=== PATIENT | female | born 1990 | race Caucasian/White ===

== ENCOUNTER 2017-06-13 19:56 | Emergency (ER) | payer SELFPAY, OTHER ==
[2017-06-15 07:59] LABS: NEGATIVE OBC STREP NEG; POSITIVE OBC STREP POS
== END 2017-06-13 21:48 | disposition home or self-care (01) ==
LOC: ER 19:56
DX: J02.9 Acute pharyngitis, unspecified (principal); H66.91 Otitis media, unspecified, right ear; Z90.49 Acquired absence of other specified parts of digestive tract
CPT/HCPCS: 87070; 87880; 99283

== ENCOUNTER 2019-05-05 13:40 | Emergency (ER) | payer SELFPAY ==
[~2019-05-05] VITALS: Ht 167.6 cm; Wt 88.5 kg
[~2019-05-05 13:40] MED LIST: CEPH-264 PO
[2019-05-05 13:56] VITALS: BP 138/74
--- NOTE | 2019-05-05 14:46 | PHYS DOC ---
Past Medical History Past Medical History: No Pertinent History (MAGDALENE TIJERINA APRN) Past Surgical History: Cholecystectomy (MAGDALENE TIJERINA APRN) Alcohol Use: None Drug Use: None (MAGDALENE TIJERINA APRN) Attending Signature I have participated in the care of this patient and I have reviewed and agree with all pertinent clinical information above including history, exam, and recommendations. (ELLEN PARRA MD) Adult General Chief Complaint Chief Complaint: DENTAL PROBLEM HPI HPI Patient is a 28 year old female who presents to the emergency department with complaints of lower left dental pain that began a week ago. Patient states now her ears and her throat are bothering her. She denies any fever, cough, nausea, vomiting, diarrhea, abdominal pain, rash, wheezing, or difficulty swallowing. She currently rates her pain a 6/10 on the pain scale, she denies any alleviating factors. All other ROS is neg unless otherwise noted in HPI. (MAGDALENE TIJERINA APRN) Review of Systems Review of Systems See Above (MAGDALENE TIJERINA APRN) Allergies Allergies Allergies Coded Allergies Type Severity Reaction Last Updated Verified No Known Drug Allergies 01/03/14 No (ELLEN PARRA MD) Physical Exam Physical Exam See Above Constitutional: Well developed, well nourished, no acute distress, non-toxic appearance. [] HENT: Normocephalic, atraumatic, bilateral external ears normal, bilateral TMs normal, oropharynx moist, no oral exudates, nose normal; broken tooth with surrounding gingival edema and erythema noted to LLQ, no visible abscess. Eyes: PERRLA, EOMI, conjunctiva normal, no discharge. [] Neck: Normal range of motion, no stridor. [] Cardiovascular:Heart rate regular rhythm, no murmur [] Lungs & Thorax: Bilateral breath sounds clear to auscultation [] Skin: Warm, dry, no erythema, no rash. [] Extremities: No cyanosis, ROM intact, no edema. [] Neurologic: Alert and oriented X 3, no focal deficits noted. [] Psychologic: Affect normal, judgement normal, mood normal. [] (MAGDALENE TIJERINA APRN) Current Patient Data Vital Signs Vital Signs Date Time Temp Pulse Resp B/P (MAP) Pulse Ox O2 Delivery O2 Flow Rate FiO2 05/05/19 13:56 98.0 67 16 138/74 (95) 99 Room Air 98.0 (ELLEN PARRA MD) EKG EKG [] (MAGDALENE TIJERINA APRN) Radiology/Procedures Radiology/Procedures [] (MAGDALENE TIJERINA APRN) Course & Med Decision Making Course & Med Decision Making Pertinent Labs and Imaging studies reviewed. (See chart for details) [] (MAGDALENE TIJERINA APRN) Dragon Disclaimer Dragon Disclaimer This electronic medical record was generated, in whole or in part, using a voice recognition dictation system. (MAGDALENE TIJERINA APRN) Departure Departure Impression: Primary Impression: Infected dental caries Additional Impressions: Dentalgia Acute ear pain Disposition: HOME, SELF-CARE Condition: STABLE Referrals: NO PCP (PCP) Patient Instructions: Dental Caries, Dental Pain, [id number] Additional Instructions: Fill prescription(s) and use as directed. Follow up with dentist using the referral list provided. Return to the ER if symptoms worsen. Scripts Naproxen (NAPROXEN) 500 Mg Tablet 1 TAB PO BID PRN for PAIN for 10 Days, #20 TAB 0 Refills Prov: MAGDALENE TIJERINA APRN 05/05/19 Penicillin V Potassium (PENICILLIN V POTASSIUM) 500 Mg Tablet 1 TAB PO QID for 10 Days, #40 TAB 0 Refills Prov: MAGDALENE TIJERINA APRN 05/05/19 Problem Qualifiers Additional Impressions: Acute ear pain Laterality: bilateral Qualified Codes: H92.03 - Otalgia, bilateral MAGDALENE TIJERINA APRN May 05, 2019 14:46 ELLEN PARRA MD May 06, 2019 19:02
[2019-05-05] MEDS ORDERED: PENI500T PO (15:13)
[2019-05-05] MEDS ORDERED: NAPR-514 PO (15:13)
== END 2019-05-05 15:17 | disposition home or self-care (01) ==
LOC: ER 13:40
DX: K02.9 Dental caries, unspecified (principal); H92.03 Otalgia, bilateral; Z90.49 Acquired absence of other specified parts of digestive tract
CPT/HCPCS: 99283